=== PATIENT | female | born 1930 | race Caucasian/White ===

== ENCOUNTER 2017-04-21 01:29 | Inpatient (IN) | payer MEDICARE ==
[~2017-04-21] VITALS: Ht 149.9 cm; Wt 45.0 kg
[~2017-04-21 01:29] MED LIST: ALPR0.25 PO; AMLO5TAB2 PO; ASPI-650 PO; ATOR20TA9 PO; BESI5DRO EACHEYE; BROM3DRO EACHEYE; CALC-116 PO; CARB10DR EACHEYE; CARB1TAB44 PO; CARB1TAB5 PO; CEFD300C37 PO; CHOL200040 PO; CYAN100028 SQ; DIFL5DRO EACHEYE; DOCU-131 PO; DOXY100T PO; DRON400T PO; FURO-92 PO; LEVO125T PO; LISI-167 PO; ONDA4TAB12 PO; POTA20TA14 PO; PRED5TAB PO; ROPI0.2537 PO; TRAM50TA2 PO; UBID200C7 PO
[2017-04-21] MEDS ORDERED: SODIUM CHLORIDE 0.9% 1,000 ML IV ONE (01:43)
[2017-04-21] MEDS ORDERED: AMLO5TAB2 PO (01:49)
[2017-04-21] MEDS ORDERED: ASPI-496 PO (01:49)
[2017-04-21] MEDS ORDERED: MORPHINE SULFATE 4 MG/ML, 1ML ONE (01:52)
[2017-04-21] MEDS ORDERED: ONDANSETRON 2MG/ML, 2ML ONE (01:52)
[2017-04-21] MEDS ORDERED: DILTIAZEM 5 MG/ML, 5ML ONE (01:53)
[2017-04-21] MEDS ORDERED: ASPIRIN 81 MG TABLET CHEW ONE ×2 (01:53→08:00)
[2017-04-21] MEDS ORDERED: ONDANSETRON 2MG/ML, 2ML IVPush ONE (02:00)
[2017-04-21] MEDS ORDERED: SODIUM CHLORIDE FLUSH 10ML SYR IVF ONE (02:00)
[2017-04-21] MEDS ORDERED: MORPHINE SULFATE 4 MG/ML, 1ML IVPush PRN (02:00)
[2017-04-21] MEDS ORDERED: ASPIRIN 81 MG TABLET CHEW PO ONE (02:00)
[2017-04-21] MEDS ORDERED: DILTIAZEM 5 MG/ML, 5ML IV ONE (02:00)
[2017-04-21 02:01] LABS: BASOPHILS # (AUTO) 0.06 x10^3/uL (0-0.1); BASOPHILS % (AUTO) 1 % (0-1); EOSINOPHILS # (AUTO) 0.02 x10^3/uL (0-0.4); EOSINOPHILS % (AUTO) 0 % (1-7); LYMPHOCYTES # (AUTO) 0.84 x10^3/uL (1-3.4); LYMPHOCYTES % (AUTO) 8 % (22-44); MD NO; MEAN CORPUSCULAR HEMOGLOBIN 26.1 pg (27.0-34.8); MEAN CORPUSCULAR HGB CONC 32.3 g/dL (32.4-35.8); MEAN CORPUSCULAR VOLUME 80.9 fL (80-100); MEAN PLATELET VOLUME 7.6 fL (7.4-10.4); MONOCYTES # (AUTO) 0.66 x10^3/uL (0.2-0.8); MONOCYTES % (AUTO) 6 % (2-9); NEUTROPHILS # (AUTO) 8.98 x10^3/uL (1.8-6.8); NEUTROPHILS % (AUTO) 85 % (42-75); PLATELET COUNT 412 x10^3/uL (130-400); RED BLOOD COUNT 5.83 x10^6/uL (3.82-5.3); RED CELL DISTRIBUTION WIDTH 15.9 % (9.6-15.2)
[2017-04-21 02:10] LABS: INTERNATIONAL NORMALIZED RATIO 1.08 (0.93-1.1); PROTHROMBIN TIME 11.2 Seconds (9.6-11.5)
[2017-04-21 02:13] LABS: ALANINE AMINOTRANSFERASE 23 U/L (12-78); ALBUMIN 2.6 g/dL (3.4-5.0); ANION GAP 10 mmol/L (5-15); CALCIUM 7.6 mg/dL (8.5-10.1); CHLORIDE 94 mmol/L (98-107); CREATININE 1.81 mg/dL (0.55-1.02)
[2017-04-21 02:18] LABS: ALKALINE PHOSPHATASE 223 U/L (45-117); BILIRUBIN,TOTAL 0.8 mg/dL (0.2-1.0); T4 (THYROXINE) 13.2 mcg/dL (4.8-13.9); TOTAL PROTEIN 6.5 g/dL (6.4-8.2); TROPONIN I < 0.015 ng/mL (0.000-0.045)
[2017-04-21] MEDS ORDERED: FUROSEMIDE 40 MG/4 ML ONE (02:51)
[2017-04-21] MEDS ORDERED: FUROSEMIDE 40 MG/4 ML IV ONE (03:00)
[2017-04-21 03:44] VITALS: BP 130/79
[2017-04-21] MEDS ORDERED: hydrALAzine 20 MG/ML, 1ML IVPush PRN (05:00)
[2017-04-21] MEDS ORDERED: ONDANSETRON 2MG/ML, 2ML IVPush PRN (05:00)
[2017-04-21] MEDS ORDERED: POLYETHYLENE GLYCOL 17 GM PACKET PO PRN (05:00)
[2017-04-21] MEDS ORDERED: LABETALOL 5MG/ML, 20ML IVPush PRN (05:00)
[2017-04-21] MEDS ORDERED: CEFTRIAXONE PMX 1GM/50ML 50 ML IV SCH (05:00)
[2017-04-21] MEDS ORDERED: BISACODYL 10 MG SUPP PR PRN (05:00)
[2017-04-21] MEDS ORDERED: ACETAMINOPHEN 325 MG TABLET PO PRN (05:00)
[2017-04-21] MEDS ORDERED: morphine SULFATE 10 MG/ML, 1ML IVPush PRN (05:00)
[2017-04-21] MEDS: HEPARIN 5,000 UNITS/ML, 1ML SQ SCH ×3 (05:20→19:59)
[2017-04-21] MEDS: DILTIAZEM 125 MG in SODIUM CHLORIDE 0.9% 100 ML IV PRN ×2 (06:07→20:28)
[2017-04-21] MEDS: LEVOTHYROXINE 125 MCG TABLET PO SCH (06:08)
[2017-04-21] MEDS: CALCIUM/VITAMIN D3 250-125 TABLET PO SCH ×4 (06:08→19:58)
[2017-04-21 06:48] LABS: HEMOGLOBIN A1C 5.4 % (4.2-6.3)
[2017-04-21 07:35] VITALS: BP 127/87
[2017-04-21 08:00] LABS: TROPONIN I < 0.015 ng/mL (0.000-0.045)
[2017-04-21] MEDS: SENNA/DOCUSATE TABLET PO SCH (08:08)
[2017-04-21] MEDS: AMLODIPINE 5 MG TABLET PO SCH (08:12)
[2017-04-21] MEDS: ASPIRIN 81 MG TABLET EC PO SCH (08:12)
[2017-04-21] MEDS: DOXYCYCLINE 100MG TABLET PO SCH ×2 (08:12→19:59)
[2017-04-21] MEDS: FUROSEMIDE 20 MG/2 ML IV SCH (08:14)
[2017-04-21 12:30] VITALS: BP 123/82
[2017-04-21 14:13] LABS: TROPONIN I < 0.015 ng/mL (0.000-0.045)
[2017-04-21 17:18] VITALS: BP 110/73
[2017-04-21 19:28] VITALS: BP 121/76
[2017-04-22] VITALS (12 sets, daily range): BP systolic 94–128; BP diastolic 56–82
[2017-04-22] MEDS: HEPARIN 5,000 UNITS/ML, 1ML SQ SCH ×3 (04:45→21:00)
[2017-04-22] MEDS: CEFTRIAXONE 1,000 MG in SODIUM CHLORIDE 0.9% 50 ML IV SCH (04:46)
[2017-04-22 05:23] LABS: BASOPHILS # (AUTO) 0.03 x10^3/uL (0-0.1); BASOPHILS % (AUTO) 0 % (0-1); EOSINOPHILS # (AUTO) 0.04 x10^3/uL (0-0.4); EOSINOPHILS % (AUTO) 0 % (1-7); LYMPHOCYTES # (AUTO) 1.25 x10^3/uL (1-3.4); LYMPHOCYTES % (AUTO) 11 % (22-44); MD NO; MEAN CORPUSCULAR HEMOGLOBIN 26.3 pg (27.0-34.8); MEAN CORPUSCULAR HGB CONC 32.8 g/dL (32.4-35.8); MEAN CORPUSCULAR VOLUME 80.3 fL (80-100); MEAN PLATELET VOLUME 7.8 fL (7.4-10.4); MONOCYTES % (AUTO) 9 % (2-9); NEUTROPHILS # (AUTO) 9.04 x10^3/uL (1.8-6.8); NEUTROPHILS % (AUTO) 80 % (42-75); PLATELET COUNT 351 x10^3/uL (130-400); RED BLOOD COUNT 5.29 x10^6/uL (3.82-5.3); RED CELL DISTRIBUTION WIDTH 15.7 % (9.6-15.2)
[2017-04-22 05:36] LABS: ALBUMIN 2.4 g/dL (3.4-5.0); ANION GAP 12 mmol/L (5-15); CALCIUM 7.3 mg/dL (8.5-10.1); CHLORIDE 92 mmol/L (98-107)
[2017-04-22 05:41] LABS: ALANINE AMINOTRANSFERASE 20 U/L (12-78); ALKALINE PHOSPHATASE 201 U/L (45-117); BILIRUBIN,TOTAL 0.6 mg/dL (0.2-1.0); CHOLESTEROL, TOTAL 159 mg/dL (140-239); CREATININE 2.05 mg/dL (0.55-1.02); HDL CHOL % 51 % (28-40); HDL CHOLESTEROL (DIRECT) 81 mg/dL (40-60); LDL CHOLESTEROL,CALCULATED 63 mg/dL (54-169); LDL/HDL RATIO 0.8 (0.5-3.0); TOTAL PROTEIN 5.9 g/dL (6.4-8.2); TRIGLYCERIDES 77 mg/dL (50-200); VLDL CHOLESTEROL 15 mg/dL (0-25)
[2017-04-22] MEDS: CALCIUM/VITAMIN D3 250-125 TABLET PO SCH ×4 (05:58→21:00)
[2017-04-22] MEDS: LEVOTHYROXINE 125 MCG TABLET PO SCH (05:58)
[2017-04-22] MEDS: AMLODIPINE 5 MG TABLET PO SCH (09:24)
[2017-04-22] MEDS: ASPIRIN 81 MG TABLET EC PO SCH (09:24)
[2017-04-22] MEDS: DOXYCYCLINE 100MG TABLET PO SCH ×2 (09:24→21:00)
[2017-04-22] MEDS: SENNA/DOCUSATE TABLET PO SCH (09:25)
[2017-04-22] MEDS: FUROSEMIDE 20 MG/2 ML IV SCH (09:25)
[2017-04-22] MEDS ORDERED: ALBUTEROL/IPRATROPIUM 2.5MG/0.5MG, 3 ML ONE (09:34)
[2017-04-22] MEDS ORDERED: ALBUTEROL/IPRATROPIUM 2.5MG/0.5MG, 3 ML NEB ONE (10:00)
[2017-04-22] MEDS: DILTIAZEM 125 MG in SODIUM CHLORIDE 0.9% 100 ML IV PRN (10:28)
[2017-04-22] MEDS ORDERED: DILTIAZEM 30 MG TABLET ONE ×2 (12:58→17:47)
[2017-04-22] MEDS: DILTIAZEM 60 MG TABLET PO SCH ×2 (13:02→17:57)
[2017-04-22] MEDS ORDERED: PROMETHAZINE 25 MG/ML, 1ML IM PRN (14:30)
[2017-04-22] MEDS: FUROSEMIDE 20 MG TABLET PO SCH (17:56)
[2017-04-23] MEDS ORDERED: DILTIAZEM 30 MG TABLET ONE ×2 (00:21→05:48)
[2017-04-23] MEDS: DILTIAZEM 60 MG TABLET PO SCH ×2 (00:24→05:59)
[2017-04-23 01:39] VITALS: BP 130/65
[2017-04-23 05:20] LABS: BASOPHILS # (AUTO) 0.05 x10^3/uL (0-0.1); BASOPHILS % (AUTO) 0 % (0-1); EOSINOPHILS # (AUTO) 0.04 x10^3/uL (0-0.4); EOSINOPHILS % (AUTO) 0 % (1-7); LYMPHOCYTES # (AUTO) 1.12 x10^3/uL (1-3.4); LYMPHOCYTES % (AUTO) 8 % (22-44); MD NO; MEAN CORPUSCULAR HGB CONC 32.9 g/dL (32.4-35.8); MEAN CORPUSCULAR VOLUME 78.9 fL (80-100); MEAN PLATELET VOLUME 7.8 fL (7.4-10.4); MONOCYTES # (AUTO) 1.05 x10^3/uL (0.2-0.8); MONOCYTES % (AUTO) 8 % (2-9); NEUTROPHILS % (AUTO) 83 % (42-75); PLATELET COUNT 297 x10^3/uL (130-400); RED BLOOD COUNT 5.27 x10^6/uL (3.82-5.3); RED CELL DISTRIBUTION WIDTH 15.6 % (9.6-15.2)
[2017-04-23 05:40] LABS: ANION GAP 11 mmol/L (5-15); CALCIUM 7.2 mg/dL (8.5-10.1); CHLORIDE 94 mmol/L (98-107); CREATININE 2.06 mg/dL (0.55-1.02)
[2017-04-23] MEDS: LEVOTHYROXINE 125 MCG TABLET PO SCH (05:59)
[2017-04-23] MEDS: CALCIUM/VITAMIN D3 250-125 TABLET PO SCH ×4 (05:59→21:10)
[2017-04-23] MEDS: HEPARIN 5,000 UNITS/ML, 1ML SQ SCH ×3 (06:00→21:10)
[2017-04-23] MEDS: CEFTRIAXONE 1,000 MG in SODIUM CHLORIDE 0.9% 50 ML IV SCH (06:00)
[2017-04-23 06:49] VITALS: BP 127/83
[2017-04-23] MEDS: AMLODIPINE 5 MG TABLET PO SCH (08:28)
[2017-04-23] MEDS: ASPIRIN 81 MG TABLET EC PO SCH (08:28)
[2017-04-23] MEDS: FUROSEMIDE 20 MG TABLET PO SCH (08:28)
[2017-04-23] MEDS: DOXYCYCLINE 100MG TABLET PO SCH ×2 (08:28→21:10)
[2017-04-23] MEDS: SENNA/DOCUSATE TABLET PO SCH (08:29)
[2017-04-23 12:53] LABS: BASOPHILS # (AUTO) 0.04 x10^3/uL (0-0.1); BASOPHILS % (AUTO) 0 % (0-1); EOSINOPHILS # (AUTO) 0.09 x10^3/uL (0-0.4); EOSINOPHILS % (AUTO) 1 % (1-7); LYMPHOCYTES # (AUTO) 0.92 x10^3/uL (1-3.4); LYMPHOCYTES % (AUTO) 8 % (22-44); MD NO; MEAN CORPUSCULAR HEMOGLOBIN 26.1 pg (27.0-34.8); MEAN CORPUSCULAR VOLUME 79.1 fL (80-100); MEAN PLATELET VOLUME 7.8 fL (7.4-10.4); MONOCYTES # (AUTO) 0.93 x10^3/uL (0.2-0.8); MONOCYTES % (AUTO) 8 % (2-9); NEUTROPHILS # (AUTO) 9.52 x10^3/uL (1.8-6.8); NEUTROPHILS % (AUTO) 83 % (42-75); PLATELET COUNT 289 x10^3/uL (130-400); RED BLOOD COUNT 4.94 x10^6/uL (3.82-5.3); RED CELL DISTRIBUTION WIDTH 15.3 % (9.6-15.2)
[2017-04-23 13:04] LABS: ANION GAP 12 mmol/L (5-15); CALCIUM 7.1 mg/dL (8.5-10.1); CHLORIDE 94 mmol/L (98-107); CREATININE 2.12 mg/dL (0.55-1.02)
[2017-04-23 13:11] VITALS: BP 104/70
[2017-04-23] MEDS: METOPROLOL TARTRATE 25 MG TABLET PO SCH ×2 (13:17→18:22)
[2017-04-23 14:28] VITALS: BP 99/65
[2017-04-23] MEDS: NS + 40MEQ KCL 1,000 ML IV SCH (15:15)
[2017-04-23 18:44] VITALS: BP 110/74
[2017-04-24] VITALS (7 sets, daily range): BP systolic 92–113; BP diastolic 63–77
[2017-04-24] MEDS: METOPROLOL TARTRATE 25 MG TABLET PO SCH ×2 (00:23→06:15)
[2017-04-24] MEDS: HEPARIN 5,000 UNITS/ML, 1ML SQ SCH ×3 (05:01→20:24)
[2017-04-24] MEDS: CEFTRIAXONE 1,000 MG in SODIUM CHLORIDE 0.9% 50 ML IV SCH (05:01)
[2017-04-24] MEDS: LEVOTHYROXINE 125 MCG TABLET PO SCH (06:14)
[2017-04-24] MEDS: CALCIUM/VITAMIN D3 250-125 TABLET PO SCH ×4 (06:14→20:24)
[2017-04-24] MEDS: NS + 40MEQ KCL 1,000 ML IV SCH (06:15)
[2017-04-24] MEDS: DOXYCYCLINE 100MG TABLET PO SCH ×2 (07:54→20:24)
[2017-04-24] MEDS: SENNA/DOCUSATE TABLET PO SCH (07:54)
[2017-04-24] MEDS: ASPIRIN 81 MG TABLET EC PO SCH (07:54)
[2017-04-24] MEDS: DRONEDARONE 400MG TABLET PO SCH ×2 (08:09→20:24)
[2017-04-24 08:52] LABS: BASOPHILS # (AUTO) 0.04 x10^3/uL (0-0.1); BASOPHILS % (AUTO) 0 % (0-1); EOSINOPHILS # (AUTO) 0.06 x10^3/uL (0-0.4); EOSINOPHILS % (AUTO) 1 % (1-7); LYMPHOCYTES # (AUTO) 0.95 x10^3/uL (1-3.4); LYMPHOCYTES % (AUTO) 9 % (22-44); MD NO; MEAN CORPUSCULAR HEMOGLOBIN 25.7 pg (27.0-34.8); MEAN CORPUSCULAR HGB CONC 32.3 g/dL (32.4-35.8); MEAN CORPUSCULAR VOLUME 79.4 fL (80-100); MEAN PLATELET VOLUME 8.1 fL (7.4-10.4); MONOCYTES % (AUTO) 10 % (2-9); NEUTROPHILS # (AUTO) 8.41 x10^3/uL (1.8-6.8); NEUTROPHILS % (AUTO) 80 % (42-75); PLATELET COUNT 306 x10^3/uL (130-400); RED BLOOD COUNT 5.08 x10^6/uL (3.82-5.3); RED CELL DISTRIBUTION WIDTH 15.6 % (9.6-15.2)
[2017-04-24 09:05] LABS: ANION GAP 9 mmol/L (5-15); CALCIUM 6.6 mg/dL (8.5-10.1); CHLORIDE 99 mmol/L (98-107); CREATININE 1.78 mg/dL (0.55-1.02)
[2017-04-24] MEDS ORDERED: FUROSEMIDE 20 MG/2 ML IV ONE ×3 (09:30→16:30)
[2017-04-24 14:40] LABS: MICROSCOPIC AUTO
[2017-04-24 14:58] LABS: CULTURE INDICATED? NO
[2017-04-24] MEDS: OXYcodone IR 5MG TABLET PO PRN (15:18)
[2017-04-24] MEDS ORDERED: GUAIFENESIN 100 MG/5 ML, 5ML UDC PO PRN (16:30)
[2017-04-24] MEDS ORDERED: ALBUTEROL/IPRATROPIUM 2.5MG/0.5MG, 3 ML ONE (16:37)
[2017-04-25 00:55] VITALS: BP 113/76
[2017-04-25] MEDS: OXYcodone IR 5MG TABLET PO PRN ×2 (02:19→14:50)
[2017-04-25] MEDS: CEFTRIAXONE 1,000 MG in SODIUM CHLORIDE 0.9% 50 ML IV SCH (06:04)
[2017-04-25] MEDS: CALCIUM/VITAMIN D3 250-125 TABLET PO SCH ×4 (06:05→20:14)
[2017-04-25] MEDS: METOPROLOL TARTRATE 50 MG TABLET PO SCH ×2 (06:05→17:41)
[2017-04-25] MEDS: LEVOTHYROXINE 125 MCG TABLET PO SCH (06:05)
[2017-04-25] MEDS: HEPARIN 5,000 UNITS/ML, 1ML SQ SCH ×3 (06:05→20:15)
[2017-04-25 06:38] LABS: BASOPHILS # (AUTO) 0.21 x10^3/uL (0-0.1); BASOPHILS % (AUTO) 2 % (0-1); EOSINOPHILS # (AUTO) 0.04 x10^3/uL (0-0.4); EOSINOPHILS % (AUTO) 0 % (1-7); LYMPHOCYTES # (AUTO) 1.48 x10^3/uL (1-3.4); LYMPHOCYTES % (AUTO) 13 % (22-44); MD NO; MEAN CORPUSCULAR HEMOGLOBIN 26.2 pg (27.0-34.8); MEAN CORPUSCULAR HGB CONC 33.3 g/dL (32.4-35.8); MEAN CORPUSCULAR VOLUME 78.8 fL (80-100); MEAN PLATELET VOLUME 8.1 fL (7.4-10.4); MONOCYTES # (AUTO) 0.87 x10^3/uL (0.2-0.8); MONOCYTES % (AUTO) 8 % (2-9); NEUTROPHILS # (AUTO) 9.04 x10^3/uL (1.8-6.8); NEUTROPHILS % (AUTO) 78 % (42-75); PLATELET COUNT 345 x10^3/uL (130-400); RED BLOOD COUNT 5.47 x10^6/uL (3.82-5.3)
[2017-04-25 06:50] LABS: ANION GAP 12 mmol/L (5-15); CHLORIDE 97 mmol/L (98-107); CREATININE 1.99 mg/dL (0.55-1.02)
[2017-04-25 07:20] VITALS: BP 96/69
[2017-04-25] MEDS: FUROSEMIDE 40 MG/4 ML IV SCH ×3 (07:30→17:41)
[2017-04-25] MEDS: SENNA/DOCUSATE TABLET PO SCH (07:34)
[2017-04-25] MEDS: POTASSIUM CHLORIDE 20 MEQ PACKET PO SCH (07:43)
[2017-04-25] MEDS: ASPIRIN 81 MG TABLET EC PO SCH (07:43)
[2017-04-25] MEDS: DOXYCYCLINE 100MG TABLET PO SCH (07:43)
[2017-04-25] MEDS ORDERED: POTASSIUM CHLORIDE 20 MEQ TAB.ER.PRT PO SCH (08:00)
[2017-04-25] MEDS ORDERED: ENOXAPARIN 40 MG/0.4 ML SQ SCH (09:00)
[2017-04-25] MEDS ORDERED: METOLAZONE 5 MG TABLET PO ONE (10:30)
[2017-04-25 13:17] VITALS: BP 97/67
[2017-04-25] MEDS ORDERED: MAALOX/HYOSCYAMINE/LIDOCAINE 45 ML BTL PO ONE (16:30)
[2017-04-25] MEDS ORDERED: OMNIPAQUE 350 MG/ML, 100ML BOTTLE ONE (17:41)
[2017-04-25 19:53] VITALS: BP 106/62
[2017-04-26 00:28] VITALS: BP 108/81
[2017-04-26] MEDS: OXYcodone IR 5MG TABLET PO PRN (01:28)
[2017-04-26 05:23] LABS: BASOPHILS # (AUTO) 0.02 x10^3/uL (0-0.1); BASOPHILS % (AUTO) 0 % (0-1); EOSINOPHILS # (AUTO) 0.04 x10^3/uL (0-0.4); EOSINOPHILS % (AUTO) 0 % (1-7); LYMPHOCYTES # (AUTO) 1.23 x10^3/uL (1-3.4); LYMPHOCYTES % (AUTO) 11 % (22-44); MD NO; MEAN CORPUSCULAR HGB CONC 32.7 g/dL (32.4-35.8); MEAN CORPUSCULAR VOLUME 79.6 fL (80-100); MEAN PLATELET VOLUME 8.6 fL (7.4-10.4); MONOCYTES # (AUTO) 0.91 x10^3/uL (0.2-0.8); MONOCYTES % (AUTO) 9 % (2-9); NEUTROPHILS # (AUTO) 8.57 x10^3/uL (1.8-6.8); NEUTROPHILS % (AUTO) 80 % (42-75); PLATELET COUNT 352 x10^3/uL (130-400); RED BLOOD COUNT 5.68 x10^6/uL (3.82-5.3); RED CELL DISTRIBUTION WIDTH 15.8 % (9.6-15.2)
[2017-04-26 05:30] LABS: ANION GAP 15 mmol/L (5-15); CHLORIDE 96 mmol/L (98-107)
[2017-04-26 05:31] LABS: CREATININE 2.11 mg/dL (0.55-1.02)
[2017-04-26] MEDS: HEPARIN 5,000 UNITS/ML, 1ML SQ SCH ×3 (06:10→21:00)
[2017-04-26] MEDS: CALCIUM/VITAMIN D3 250-125 TABLET PO SCH ×4 (06:10→21:00)
[2017-04-26] MEDS: LEVOTHYROXINE 125 MCG TABLET PO SCH (06:11)
[2017-04-26] MEDS: METOPROLOL TARTRATE 50 MG TABLET PO SCH ×2 (06:11→17:00)
[2017-04-26 06:40] VITALS: BP 119/78
[2017-04-26] MEDS: POTASSIUM CHLORIDE 20 MEQ PACKET PO SCH (08:00)
[2017-04-26] MEDS ORDERED: POTASSIUM CHLORIDE 20 MEQ TAB.ER.PRT PO ONE (08:00)
[2017-04-26] MEDS ORDERED: MAGNESIUM SULFATE PMX 2GM/50ML 50 ML IV ONE (08:00)
[2017-04-26] MEDS: SENNA/DOCUSATE TABLET PO SCH (08:10)
[2017-04-26] MEDS: FUROSEMIDE 40 MG/4 ML IV SCH ×2 (08:45→17:00)
[2017-04-26] MEDS: ASPIRIN 81 MG TABLET EC PO SCH ×2 (08:46→10:28)
[2017-04-26] MEDS ORDERED: PHARMACY MAY ADJ FOR RENAL FX MC PRN (11:00)
[2017-04-26 12:55] VITALS: BP 100/60
[2017-04-26 20:02] VITALS: BP 109/87
[2017-04-27 00:40] VITALS: BP 118/85
[2017-04-27 05:15] VITALS: BP 110/72
[2017-04-27] MEDS: CALCIUM/VITAMIN D3 250-125 TABLET PO SCH ×4 (05:16→20:04)
[2017-04-27] MEDS: HEPARIN 5,000 UNITS/ML, 1ML SQ SCH ×3 (05:16→20:05)
[2017-04-27] MEDS: LEVOTHYROXINE 125 MCG TABLET PO SCH (05:16)
[2017-04-27] MEDS: METOPROLOL TARTRATE 50 MG TABLET PO SCH (05:17)
[2017-04-27 06:10] LABS: BASOPHILS % (AUTO) 0 % (0-1); EOSINOPHILS % (AUTO) 0 % (1-7); LYMPHOCYTES # (AUTO) 0.68 x10^3/uL (1-3.4); LYMPHOCYTES % (AUTO) 10 % (22-44); MD NO; MEAN CORPUSCULAR HEMOGLOBIN 25.9 pg (27.0-34.8); MEAN CORPUSCULAR HGB CONC 32.9 g/dL (32.4-35.8); MEAN CORPUSCULAR VOLUME 78.7 fL (80-100); MEAN PLATELET VOLUME 8.5 fL (7.4-10.4); MONOCYTES # (AUTO) 0.41 x10^3/uL (0.2-0.8); MONOCYTES % (AUTO) 6 % (2-9); NEUTROPHILS # (AUTO) 5.76 x10^3/uL (1.8-6.8); NEUTROPHILS % (AUTO) 84 % (42-75); PLATELET COUNT 387 x10^3/uL (130-400); RED CELL DISTRIBUTION WIDTH 16.3 % (9.6-15.2)
[2017-04-27 06:26] LABS: ALBUMIN 2.2 g/dL (3.4-5.0); ANION GAP 14 mmol/L (5-15); CALCIUM 7.2 mg/dL (8.5-10.1); CHLORIDE 93 mmol/L (98-107)
[2017-04-27 06:28] LABS: CREATININE 2.14 mg/dL (0.55-1.02)
[2017-04-27 06:31] VITALS: BP 118/88
[2017-04-27] MEDS: SENNA/DOCUSATE TABLET PO SCH (07:28)
[2017-04-27] MEDS: ASPIRIN 81 MG TABLET EC PO SCH (07:38)
[2017-04-27] MEDS: POTASSIUM CHLORIDE 20 MEQ TAB.ER.PRT PO SCH (07:39)
[2017-04-27] MEDS: FUROSEMIDE 40 MG/4 ML IV SCH (07:39)
[2017-04-27] MEDS ORDERED: PROPOFOL 10 MG/ML, 20ML ONE (09:33)
[2017-04-27] MEDS ORDERED: AMIODARONE 150 MG in DEXTROSE 5% 100 ML IV ONE (10:00)
[2017-04-27] MEDS ORDERED: AMIODARONE 900 MG in DEXTROSE 5% 482 ML IV PRN (10:00)
[2017-04-27] MEDS ORDERED: FILTER 0.22 MICRON IV PRN (10:30)
[2017-04-27] MEDS: IRON SUCROSE COMPLEX 100MG/5ML IV SCH (12:13)
[2017-04-27 12:36] VITALS: BP 111/70
[2017-04-27] MEDS ORDERED: MAALOX/HYOSCYAMINE/LIDOCAINE 45 ML BTL PO ONE (14:00)
[2017-04-27] MEDS ORDERED: METOPROLOL TARTRATE 50 MG TABLET PO SCH ×2 (18:00)
[2017-04-27 19:58] VITALS: BP 117/56
[2017-04-28 01:06] VITALS: BP 126/79
[2017-04-28 05:26] VITALS: BP 157/65
[2017-04-28] MEDS: LEVOTHYROXINE 125 MCG TABLET PO SCH (05:28)
[2017-04-28] MEDS: HEPARIN 5,000 UNITS/ML, 1ML SQ SCH ×3 (05:28→20:53)
[2017-04-28] MEDS: CALCIUM/VITAMIN D3 250-125 TABLET PO SCH ×4 (05:28→20:53)
[2017-04-28 05:55] LABS: CALCIUM 7.2 mg/dL (8.5-10.1); CHLORIDE 93 mmol/L (98-107)
[2017-04-28 05:59] LABS: ANION GAP 14 mmol/L (5-15); CREATININE 2.18 mg/dL (0.55-1.02)
[2017-04-28] MEDS ORDERED: METOPROLOL SUCCINATE 25 MG TAB.ER.24H PO SCH (06:00)
[2017-04-28 07:27] VITALS: BP 130/71
[2017-04-28] MEDS ORDERED: TEMAZEPAM 15 MG CAPSULE PO PRN (08:00)
[2017-04-28] MEDS: SENNA/DOCUSATE TABLET PO SCH (09:00)
[2017-04-28] MEDS: MAGNESIUM OXIDE 400 MG TABLET PO SCH ×2 (09:50→20:52)
[2017-04-28] MEDS: POTASSIUM CHLORIDE 20 MEQ TAB.ER.PRT PO SCH (09:50)
[2017-04-28] MEDS: IRON SUCROSE COMPLEX 100MG/5ML IV SCH (09:50)
[2017-04-28] MEDS: FUROSEMIDE 20 MG/2 ML IV SCH (09:50)
[2017-04-28] MEDS: AMIODARONE 200 MG TABLET PO SCH ×2 (11:01→20:52)
[2017-04-28] MEDS: ASPIRIN 81 MG TABLET EC PO SCH (11:01)
[2017-04-28] MEDS: MULTIVITAMINS WITH IRON TABLET PO SCH (12:26)
[2017-04-28 12:31] VITALS: BP 129/75
[2017-04-28 19:08] VITALS: BP 129/70
[2017-04-29 02:08] VITALS: BP 121/71
[2017-04-29 05:02] LABS: ANION GAP 12 mmol/L (5-15); CALCIUM 7.2 mg/dL (8.5-10.1); CHLORIDE 92 mmol/L (98-107)
[2017-04-29 05:04] LABS: CREATININE 1.99 mg/dL (0.55-1.02)
[2017-04-29] MEDS: CALCIUM/VITAMIN D3 250-125 TABLET PO SCH ×4 (05:50→20:49)
[2017-04-29] MEDS: LEVOTHYROXINE 125 MCG TABLET PO SCH (05:50)
[2017-04-29] MEDS: HEPARIN 5,000 UNITS/ML, 1ML SQ SCH ×3 (05:50→20:49)
[2017-04-29] MEDS ORDERED: POTASSIUM CHLORIDE 20 MEQ TAB.ER.PRT PO ONE (07:00)
[2017-04-29 07:19] VITALS: BP 156/76
[2017-04-29] MEDS: MAGNESIUM OXIDE 400 MG TABLET PO SCH ×2 (07:43→20:48)
[2017-04-29] MEDS: POTASSIUM CHLORIDE 20 MEQ TAB.ER.PRT PO SCH ×3 (07:43→20:49)
[2017-04-29] MEDS: MULTIVITAMINS WITH IRON TABLET PO SCH (07:44)
[2017-04-29] MEDS: ASPIRIN 81 MG TABLET EC PO SCH (07:44)
[2017-04-29] MEDS: AMIODARONE 200 MG TABLET PO SCH ×2 (07:44→20:48)
[2017-04-29] MEDS: FUROSEMIDE 20 MG/2 ML IV SCH (07:44)
[2017-04-29] MEDS: SENNA/DOCUSATE TABLET PO SCH (07:44)
[2017-04-29] MEDS: IRON SUCROSE COMPLEX 100MG/5ML IV SCH (07:44)
[2017-04-29] MEDS: FUROSEMIDE 40 MG/4 ML IV SCH (09:00)
[2017-04-29] MEDS ORDERED: FUROSEMIDE 20 MG/2 ML IV ONE (09:30)
[2017-04-29 15:18] VITALS: BP 155/77
[2017-04-29 19:10] VITALS: BP 154/74
[2017-04-30 00:03] VITALS: BP 151/71
[2017-04-30] MEDS: CALCIUM/VITAMIN D3 250-125 TABLET PO SCH (05:08)
[2017-04-30] MEDS: HEPARIN 5,000 UNITS/ML, 1ML SQ SCH (05:08)
[2017-04-30] MEDS: LEVOTHYROXINE 125 MCG TABLET PO SCH (05:08)
[2017-04-30 05:26] LABS: CHLORIDE 92 mmol/L (98-107)
[2017-04-30 05:42] LABS: ANION GAP 11 mmol/L (5-15); CALCIUM 7.4 mg/dL (8.5-10.1); CREATININE 1.48 mg/dL (0.55-1.02)
[2017-04-30 06:24] VITALS: BP 170/76
[2017-04-30] MEDS ORDERED: POTASSIUM CHLORIDE 20 MEQ TAB.ER.PRT PO ONE (08:00)
[2017-04-30] MEDS ORDERED: PRED20TA PO (08:12)
[2017-04-30] MEDS ORDERED: POTA10TA6 PO (08:12)
[2017-04-30] MEDS ORDERED: FURO-93 PO (08:12)
[2017-04-30] MEDS ORDERED: AMIO200T42 PO (08:12)
[2017-04-30] MEDS: ASPIRIN 81 MG TABLET EC PO SCH (08:29)
[2017-04-30] MEDS: IRON SUCROSE COMPLEX 100MG/5ML IV SCH (08:30)
[2017-04-30] MEDS: FUROSEMIDE 40 MG/4 ML IV SCH (08:30)
[2017-04-30] MEDS: MULTIVITAMINS WITH IRON TABLET PO SCH (08:31)
[2017-04-30] MEDS: POTASSIUM CHLORIDE 20 MEQ TAB.ER.PRT PO SCH (08:31)
[2017-04-30] MEDS: MAGNESIUM OXIDE 400 MG TABLET PO SCH (08:31)
[2017-04-30] MEDS: AMIODARONE 200 MG TABLET PO SCH (08:31)
[2017-04-30] MEDS: SENNA/DOCUSATE TABLET PO SCH (08:32)
== END 2017-04-30 11:30 | disposition home health service (06) | DRG 682 ==
LOC: ED 01:46 → EDIP 03:04 → 5SO 03:36
PROVIDERS: ADMIT Internal Medicine; ATTEND Internal Medicine
PROC: 5A2204Z Restoration of Cardiac Rhythm, Single (ICD-10-PCS; 2017-04-27)
PROC: B246ZZ4 Ultrasonography of Right and Left Heart, Transesophageal (ICD-10-PCS; principal; 2017-04-27 09:30)
DX: N17.0 Acute kidney failure with tubular necrosis (principal); J96.01 Acute respiratory failure with hypoxia; E43 Unspecified severe protein-calorie malnutrition; I47.2 Ventricular tachycardia; I50.43 Acute on chronic combined systolic (congestive) and diastolic (congestive) heart failure; D68.59 Other primary thrombophilia; E87.1 Hypo-osmolality and hyponatremia; G20 Parkinson's disease; I27.20 Pulmonary hypertension, unspecified; I13.0 Hypertensive heart and chronic kidney disease with heart failure and stage 1 through stage 4 chronic kidney disease, or unspecified chronic kidney disease; I48.92 Unspecified atrial flutter; J44.1 Chronic obstructive pulmonary disease with (acute) exacerbation; N18.4 Chronic kidney disease, stage 4 (severe); I48.0 Paroxysmal atrial fibrillation; J44.9 Chronic obstructive pulmonary disease, unspecified; E03.9 Hypothyroidism, unspecified; E78.5 Hyperlipidemia, unspecified; G89.29 Other chronic pain; G25.81 Restless legs syndrome; M54.5 Low back pain; I08.2 Rheumatic disorders of both aortic and tricuspid valves; I25.5 Ischemic cardiomyopathy; I73.9 Peripheral vascular disease, unspecified; Z79.82 Long term (current) use of aspirin; Z79.899 Other long term (current) drug therapy; Z87.11 Personal history of peptic ulcer disease; Z87.891 Personal history of nicotine dependence; Z90.710 Acquired absence of both cervix and uterus; Z99.81 Dependence on supplemental oxygen; Z90.49 Acquired absence of other specified parts of digestive tract; Z88.8 Allergy status to other drugs, medicaments and biological substances; Z68.20 Body mass index [BMI] 20.0-20.9, adult
CPT/HCPCS: 36415; 71045; 71275; 76770; 78582; 80048; 80053; 80061; 81001; 82040; 82728; 83036; 83540; 83550; 83735; 83880; 84100; 84436; 84443; 84484; 85025; 85610; 85730; 87040; 92960; 93005; 93306; 93312; 93325; 96374; 96375; J0696; J1644; J1756; J1940; J2405; J2704; Q9967; A9540; A9558; C9898; J0282; J3475; J3480; J7030; J7060; J7512